=== PATIENT | female | born 1995 | race African-American/Black ===

== ENCOUNTER 2024-03-07 06:34 | Emergency (ER) | payer SELFPAY ==
[~2024-03-07] VITALS: Ht 157.5 cm; Wt 54.4 kg
[2024-03-07 06:50] VITALS: O2SAT 98
[2024-03-07] MEDS: MAGNESIUM/ALUMINUM HYDROXIDE/SIMETHICONE 30ML UDC PO STA (07:22)
[2024-03-07 07:25] LABS: BASOPHILS % 0.3 % (0.0-2.0); EOSINOPHILS % 0.9 % (0.0-5.0); HEMATOCRIT. 40.2 % (36.0-48.0); HEMOGLOBIN. 13.7 g/dL (12.0-16.0); MEAN CORPUSCULAR HEMOGLOBIN 32.7 pg (28.0-32.0); MEAN CORPUSCULAR VOLUME 96.1 fL (81.0-99.0); MEAN PLATELET VOLUME 8.9 fl (7.4-10.4); MONOCYTES % 6.9 % (2.0-8.0); NEUTROPHILS % 79.9 % (40.0-76.0); PLATELET 211 x1000/uL (130-400); RED BLOOD CELL COUNT 4.18 mill/uL (4.2-5.4); RED CELL DISTRIBUTION WIDTH 12.6 % (11.6-14.6)
[2024-03-07 07:29] LABS: CHLORIDE 104 mEq/L (98-107); POTASSIUM 3.3 mEq/L (3.5-5.1); SODIUM 136 mEq/L (136-145)
[2024-03-07 07:30] LABS: CARBON DIOXIDE 27 mEq/L (21-32)
[2024-03-07 07:31] LABS: CALCIUM 9.4 mg/dL (8.7-10.4)
[2024-03-07 07:35] LABS: CREATININE 0.7 mg/dL (0.6-1.0); GLUCOSE 101 mg/dL (70-105)
[2024-03-07 07:36] LABS: UREA NITROGEN BLOOD 5 mg/dL (9-23)
[2024-03-07 07:40] LABS: CLARITY URINE CLOUDY (CLEAR); COLOR URINE DARK YELLOW (YELLOW); GLUCOSE URINE NEGATIVE (NEGATIVE); KETONES URINE 2+ (NEGATIVE); LEUKOCYTE ESTERASE URINE NEGATIVE (NEGATIVE); NITRITE URINE NEGATIVE (NEGATIVE); OCCULT BLOOD URINE NEGATIVE (NEGATIVE); PROTEIN URINE 1+ (NEGATIVE); SPECIFIC GRAVITY URINE 1.039 (1.005-1.030)
[2024-03-07 07:44] LABS: UCG SCREEN NEGATIVE
[2024-03-07 07:55] LABS: BACTERIA URINE 1+; RBC URINE 0-2 /hpf (0-2); SQUAMOUS EPITHELIAL CELL URINE 2+ /lpf (RARE/1+); WBC URINE 0-2 /hpf (0-2); YEAST URINE NONE SEEN
[2024-03-07 08:00] LABS: ALANINE AMINOTRANSFERASE 16 IU/L (10-49); ASPARTATE AMINOTRANSFERASE 22 IU/L (<34); BILIRUBIN DIRECT 0.2 mg/dL (<=3.0)
[2024-03-07 08:01] LABS: BILIRUBIN TOTAL 0.7 mg/dL (0.1-1.0); PROTEIN TOTAL 7.7 g/dL (6.0-8.3)
[2024-03-07] MEDS ORDERED: TOPUD PO (09:05)
[2024-03-07] MEDS ORDERED: ONDA4TAB50 PO (09:05)
[2024-03-07] MEDS: DICYCLOMINE 10 MG/5 ML ORAL SYR PO STA (09:20)
[2024-03-07] MEDS: ACETAMINOPHEN 325MG TABLET PO STA (09:21)
[2024-03-07] MEDS: FAMOTIDINE 20MG TABLET PO ONE (09:22)
[2024-03-07] MEDS: ONDANSETRON 4MG ODT PO STA (09:22)
[2024-03-07 09:24] VITALS: BP 112/78; PULSE 79; RESP 16; TEMP 98.6
== END 2024-03-07 09:32 | disposition home or self-care (01) ==
LOC: ER 06:34
DX: R10.9 Unspecified abdominal pain (principal); Z88.2 Allergy status to sulfonamides
CPT/HCPCS: 99284; 76705; 80076; 80048; 81003; 85025; 36415; 81025; Q0162